=== PATIENT | female | born 1950 | race Caucasian/White ===

== ENCOUNTER → 2018-06-11 | Outpatient (CLI) | payer MEDICARE ==
[~2018-06-11] MED LIST: GADOBUTROL 7.5 MMOL/7.5 ML PFS ONE
== END | disposition home or self-care (01) ==
LOC: CFH 05-19 13:30
PROVIDERS: ATTEND Nurse Practitioner Family
DX: I69.393 Ataxia following cerebral infarction (principal); G31.9 Degenerative disease of nervous system, unspecified; D49.6 Neoplasm of unspecified behavior of brain
CPT/HCPCS: 70553; 82565; A9585

== ENCOUNTER 2018-08-30 14:07 | Inpatient (IN) | payer MEDICARE ==
[~2018-08-30] VITALS: Ht 175.3 cm; Wt 80.7 kg
[2018-08-30] MEDS ORDERED: SODIUM CHLORIDE FLUSH 10ML SYR IVF ONE (15:00)
[2018-08-30 15:35] LABS: MEAN CORPUSCULAR HEMOGLOBIN 31.9 pg (27.0-34.8); MEAN CORPUSCULAR HGB CONC 34.2 g/dL (32.4-35.8); MEAN CORPUSCULAR VOLUME 93.3 fL (80-100); MEAN PLATELET VOLUME 8.3 fL (7.4-10.4); PLATELET COUNT 221 x10^3/uL (130-400); RED BLOOD COUNT 4.71 x10^6/uL (3.82-5.3)
[2018-08-30 15:44] LABS: INTERNATIONAL NORMALIZED RATIO 1.25 (0.93-1.1); PROTHROMBIN TIME 13.1 Seconds (9.6-11.5)
[2018-08-30 15:48] LABS: ALANINE AMINOTRANSFERASE 43 U/L (12-78); ALBUMIN 2.8 g/dL (3.4-5.0); ANION GAP 12 mmol/L (5-15); CALCIUM 8.6 mg/dL (8.5-10.1); CHLORIDE 97 mmol/L (98-107); CREATININE 2.16 mg/dL (0.55-1.02)
[2018-08-30 15:50] LABS: ALKALINE PHOSPHATASE 130 U/L (45-117); BILIRUBIN,TOTAL 0.8 mg/dL (0.2-1.0); TOTAL PROTEIN 7.5 g/dL (6.4-8.2)
[2018-08-30 16:01] LABS: BASOPHILS # (AUTO) 0.01 x10^3/uL (0-0.1); BASOPHILS % (AUTO) 0 % (0-1); EOSINOPHILS % (AUTO) 0 % (1-7); LYMPHOCYTES # (AUTO) 1.34 x10^3/uL (1-3.4); LYMPHOCYTES % (AUTO) 8 % (22-44); MD SCAN; MONOCYTES # (AUTO) 0.96 x10^3/uL (0.2-0.8); MONOCYTES % (AUTO) 5 % (2-9); NEUTROPHILS # (AUTO) 15.37 x10^3/uL (1.8-6.8); NEUTROPHILS % (AUTO) 87 % (42-75)
[2018-08-30 16:26] LABS: CULTURE INDICATED? YES; MICROSCOPIC INDICATED
[2018-08-30] MEDS ORDERED: PANTOPRAZOLE 80 MG in SODIUM CHLORIDE 0.9% 100 ML IV SCH (17:00)
[2018-08-30] MEDS ORDERED: PANTOPRAZOLE 80 MG in SODIUM CHLORIDE 0.9% 50 ML IV ONE (17:00)
[2018-08-30] MEDS ORDERED: ONDANSETRON 2MG/ML, 2ML IVPush PRN (17:30)
[2018-08-30] MEDS ORDERED: hydrALAzine 20 MG/ML, 1ML IVPush PRN (17:30)
[2018-08-30] MEDS ORDERED: AMLO10TA6 PO (17:56)
[2018-08-30] MEDS ORDERED: LEVE500T8 PO (17:56)
[2018-08-30] MEDS ORDERED: TERB250T14 PEG (17:56)
[2018-08-30] MEDS ORDERED: SERT25TA3 PO (17:56)
[2018-08-30] MEDS ORDERED: ASPI-496 PO (17:56)
[2018-08-30] MEDS: SODIUM CHLORIDE 0.9% 1,000 ML IV SCH (19:25)
[2018-08-30 20:45] VITALS: BP 122/84
[2018-08-30] MEDS: CEFTRIAXONE PMX 1GM/50ML 50 ML IV SCH (20:58)
[2018-08-30] MEDS: PANTOPRAZOLE 80 MG in SODIUM CHLORIDE 0.9% 100 ML IV SCH (21:44)
[2018-08-31 02:54] VITALS: BP 100/71
[2018-08-31] MEDS: SODIUM CHLORIDE 0.9% 1,000 ML IV SCH ×2 (03:19→17:45)
[2018-08-31] MEDS: PANTOPRAZOLE 80 MG in SODIUM CHLORIDE 0.9% 100 ML IV SCH (03:19)
[2018-08-31 05:54] LABS: BASOPHILS # (AUTO) 0.06 x10^3/uL (0-0.1); BASOPHILS % (AUTO) 1 % (0-1); EOSINOPHILS # (AUTO) 0.08 x10^3/uL (0-0.4); EOSINOPHILS % (AUTO) 1 % (1-7); LYMPHOCYTES # (AUTO) 1.87 x10^3/uL (1-3.4); LYMPHOCYTES % (AUTO) 15 % (22-44); MD NO; MEAN CORPUSCULAR HEMOGLOBIN 31.7 pg (27.0-34.8); MEAN CORPUSCULAR HGB CONC 33.8 g/dL (32.4-35.8); MEAN CORPUSCULAR VOLUME 93.7 fL (80-100); MEAN PLATELET VOLUME 8.5 fL (7.4-10.4); MONOCYTES # (AUTO) 0.95 x10^3/uL (0.2-0.8); MONOCYTES % (AUTO) 8 % (2-9); NEUTROPHILS # (AUTO) 9.37 x10^3/uL (1.8-6.8); NEUTROPHILS % (AUTO) 76 % (42-75); PLATELET COUNT 182 x10^3/uL (130-400); RED CELL DISTRIBUTION WIDTH 13.3 % (9.6-15.2)
[2018-08-31 06:05] LABS: ANION GAP 8 mmol/L (5-15); CALCIUM 8.8 mg/dL (8.5-10.1); CHLORIDE 106 mmol/L (98-107)
[2018-08-31 07:27] VITALS: BP 100/72
[2018-08-31] MEDS ORDERED: PROPOFOL 10 MG/ML, 20ML ONE (10:40)
[2018-08-31 13:38] VITALS: BP 84/62
[2018-08-31] MEDS: AZITHROMYCIN 500 MG in SODIUM CHLORIDE 0.9% 250 ML IV SCH (15:43)
[2018-08-31] MEDS ORDERED: PANTOPRAZOLE GRAN. PKT 40 MG PO SCH (17:00)
[2018-08-31 19:12] VITALS: BP 100/69
[2018-08-31] MEDS: PANTOPRAZOLE 40 MG IV IVPush SCH (20:51)
[2018-08-31] MEDS: CEFTRIAXONE PMX 1GM/50ML 50 ML IV SCH (20:52)
[2018-09-01 01:30] VITALS: BP 104/72
[2018-09-01] MEDS: SODIUM CHLORIDE 0.9% 1,000 ML IV SCH (04:23)
[2018-09-01 04:51] LABS: BASOPHILS # (AUTO) 0.07 x10^3/uL (0-0.1); BASOPHILS % (AUTO) 1 % (0-1); EOSINOPHILS # (AUTO) 0.17 x10^3/uL (0-0.4); EOSINOPHILS % (AUTO) 2 % (1-7); LYMPHOCYTES # (AUTO) 1.74 x10^3/uL (1-3.4); LYMPHOCYTES % (AUTO) 24 % (22-44); MD NO; MEAN CORPUSCULAR HEMOGLOBIN 31.6 pg (27.0-34.8); MEAN CORPUSCULAR HGB CONC 33.6 g/dL (32.4-35.8); MEAN PLATELET VOLUME 8.4 fL (7.4-10.4); MONOCYTES # (AUTO) 0.61 x10^3/uL (0.2-0.8); MONOCYTES % (AUTO) 8 % (2-9); NEUTROPHILS # (AUTO) 4.78 x10^3/uL (1.8-6.8); NEUTROPHILS % (AUTO) 65 % (42-75); PLATELET COUNT 154 x10^3/uL (130-400); RED CELL DISTRIBUTION WIDTH 13.4 % (9.6-15.2)
[2018-09-01 05:01] LABS: CHLORIDE 114 mmol/L (98-107)
[2018-09-01 05:09] LABS: ALANINE AMINOTRANSFERASE 27 U/L (12-78); ALBUMIN 2.4 g/dL (3.4-5.0); ALKALINE PHOSPHATASE 102 U/L (45-117); ANION GAP 8 mmol/L (5-15); BILIRUBIN,TOTAL 0.3 mg/dL (0.2-1.0); CALCIUM 8.2 mg/dL (8.5-10.1); CREATININE 1.31 mg/dL (0.55-1.02); TOTAL PROTEIN 6.4 g/dL (6.4-8.2)
[2018-09-01 07:16] VITALS: BP 109/76
[2018-09-01] MEDS: PANTOPRAZOLE 40 MG IV IVPush SCH ×2 (08:52→20:32)
[2018-09-01] MEDS: ACETAMINOPHEN 650 MG/20.3 ML UDC GT PRN ×2 (11:58→17:25)
[2018-09-01] MEDS: TERBINAFINE 250MG TABLET PEG SCH (13:27)
[2018-09-01] MEDS: SERTRALINE 50MG TABLET PO SCH (13:27)
[2018-09-01] MEDS: LEVETIRACETAM 500 MG TABLET PO SCH (13:27)
[2018-09-01 13:44] VITALS: BP 120/82
[2018-09-01] MEDS: AZITHROMYCIN 500 MG in SODIUM CHLORIDE 0.9% 250 ML IV SCH (15:47)
[2018-09-01 19:22] VITALS: BP 148/87
[2018-09-01] MEDS: CEFTRIAXONE PMX 1GM/50ML 50 ML IV SCH (20:32)
[2018-09-02 01:08] VITALS: BP 145/87
[2018-09-02 04:37] LABS: BASOPHILS # (AUTO) 0.06 x10^3/uL (0-0.1); BASOPHILS % (AUTO) 1 % (0-1); EOSINOPHILS # (AUTO) 0.07 x10^3/uL (0-0.4); EOSINOPHILS % (AUTO) 1 % (1-7); LYMPHOCYTES # (AUTO) 1.04 x10^3/uL (1-3.4); LYMPHOCYTES % (AUTO) 12 % (22-44); MD NO; MEAN CORPUSCULAR HEMOGLOBIN 32.2 pg (27.0-34.8); MEAN CORPUSCULAR HGB CONC 34.2 g/dL (32.4-35.8); MEAN CORPUSCULAR VOLUME 94.3 fL (80-100); MEAN PLATELET VOLUME 8.3 fL (7.4-10.4); MONOCYTES # (AUTO) 0.71 x10^3/uL (0.2-0.8); MONOCYTES % (AUTO) 8 % (2-9); NEUTROPHILS # (AUTO) 7.19 x10^3/uL (1.8-6.8); NEUTROPHILS % (AUTO) 79 % (42-75); PLATELET COUNT 142 x10^3/uL (130-400); RED BLOOD COUNT 3.55 x10^6/uL (3.82-5.3); RED CELL DISTRIBUTION WIDTH 13.3 % (9.6-15.2)
[2018-09-02 04:47] LABS: ALBUMIN 2.5 g/dL (3.4-5.0); ANION GAP 7 mmol/L (5-15); CALCIUM 8.5 mg/dL (8.5-10.1); CHLORIDE 116 mmol/L (98-107); CREATININE 1.79 mg/dL (0.55-1.02)
[2018-09-02 07:02] VITALS: BP 145/92
[2018-09-02] MEDS: TERBINAFINE 250MG TABLET PEG SCH (09:26)
[2018-09-02] MEDS: SERTRALINE 50MG TABLET PO SCH (09:26)
[2018-09-02] MEDS: PANTOPRAZOLE 40 MG IV IVPush SCH (09:26)
[2018-09-02] MEDS: LEVETIRACETAM 500 MG TABLET PO SCH (09:26)
[2018-09-02 14:00] VITALS: BP 141/88
[2018-09-02] MEDS ORDERED: CEFD300C37 PO (15:01)
[2018-09-02] MEDS ORDERED: OMEP-110 PO (15:01)
[2018-09-02] MEDS: AZITHROMYCIN 500 MG in SODIUM CHLORIDE 0.9% 250 ML IV SCH (15:05)
== END 2018-09-02 18:40 | DRG 380 ==
LOC: ED 16:59 → SUATTDRO 17:07 → EDIP 17:21 → 3NW 17:45
PROVIDERS: ADMIT Hospitalist; ATTEND Hospitalist
PROC: 0T9B70Z Drainage of Bladder with Drainage Device, Via Natural or Artificial Opening (ICD-10-PCS; 2018-08-30)
PROC: 0DB38ZX Excision of Lower Esophagus, Via Natural or Artificial Opening Endoscopic, Diagnostic (ICD-10-PCS; principal; 2018-08-31 11:00)
DX: K22.11 Ulcer of esophagus with bleeding (principal); E43 Unspecified severe protein-calorie malnutrition; J18.9 Pneumonia, unspecified organism; N17.9 Acute kidney failure, unspecified; E87.0 Hyperosmolality and hypernatremia; E87.1 Hypo-osmolality and hyponatremia; N13.6 Pyonephrosis; J98.11 Atelectasis; K22.2 Esophageal obstruction; K21.9 Gastro-esophageal reflux disease without esophagitis; K44.9 Diaphragmatic hernia without obstruction or gangrene; N18.9 Chronic kidney disease, unspecified; N28.1 Cyst of kidney, acquired; Y83.3 Surgical operation with formation of external stoma as the cause of abnormal reaction of the patient, or of later complication, without mention of misadventure at the time of the procedure; Y82.8 Other medical devices associated with adverse incidents; D32.9 Benign neoplasm of meninges, unspecified; I12.9 Hypertensive chronic kidney disease with stage 1 through stage 4 chronic kidney disease, or unspecified chronic kidney disease; Z86.011 Personal history of benign neoplasm of the brain; Z86.73 Personal history of transient ischemic attack (TIA), and cerebral infarction without residual deficits; Z90.710 Acquired absence of both cervix and uterus; Z98.2 Presence of cerebrospinal fluid drainage device; Z68.26 Body mass index [BMI] 26.0-26.9, adult; Z86.19 Personal history of other infectious and parasitic diseases; Z87.440 Personal history of urinary (tract) infections; Z90.49 Acquired absence of other specified parts of digestive tract; Z88.6 Allergy status to analgesic agent
CPT/HCPCS: 36415; 74021; 74176; 80048; 80053; 81001; 82040; 83690; 83735; 84100; 84145; 85025; 85610; 87040; 87086; 88305; 93005; 99285; G0378; J0456; J0696; J2704; C9113; J7030; J7050

== ENCOUNTER → 2018-10-14 | Outpatient (CLI) | payer MEDICARE ==
[~2018-10-14] MED LIST changes: +AMLO-150 PO; +AMLO10TA6 PO; +ASPI-496 PO; +CEFD300C37 PO; +CHOL10003 PO; -GADOBUTROL 7.5 MMOL/7.5 ML PFS ONE; +LEVE500T8 PO; +OMEP-110 PO; +SERT25TA3 PO; +TERB250T14 PEG
== END | disposition home or self-care (01) ==
LOC: STAR 09:20
PROVIDERS: ATTEND Urology
DX: Z01.818 Encounter for other preprocedural examination (principal); N20.1 Calculus of ureter
CPT/HCPCS: 71045

== ENCOUNTER 2018-10-20 12:06 | Day surgery (SDC) | payer MEDICARE ==
[~2018-10-20] VITALS: Ht 172.7 cm; Wt 79.3 kg
[~2018-10-20 12:06] MED LIST changes: -AMLO10TA6 PO; +AMLO10TA8 PO
[2018-10-20] MEDS ORDERED: LACTATED RINGERS 1,000 ML IV SCH (12:26)
[2018-10-20] MEDS ORDERED: ACETAMINOPHEN 500 MG TABLET PO ONE (12:30)
[2018-10-20] MEDS ORDERED: ONDANSETRON ODT 8 MG PO ONE (12:30)
[2018-10-20 12:45] VITALS: BP 118/82
[2018-10-20] MEDS ORDERED: ACETAMINOPHEN 325 MG/10.15 ML UDC PO STA (12:55)
[2018-10-20] MEDS ORDERED: MIDAZOLAM 1 MG/ML, 2ML ONE (13:34)
[2018-10-20] MEDS ORDERED: FENTANYL PF 100 MCG/2ML ONE ×2 (13:34→14:46)
[2018-10-20] MEDS ORDERED: LIDOCAINE 2% 100MG/5ML SYRINGE ONE (13:38)
[2018-10-20] MEDS ORDERED: SUCCINYLCHOLINE 20 MG/ML, 10ML ONE (13:38)
[2018-10-20] MEDS ORDERED: GLYCOPYRROLATE 0.2MG/1ML, 5ML ONE (13:38)
[2018-10-20] MEDS ORDERED: PROPOFOL 10 MG/ML, 20ML ONE (13:38)
[2018-10-20] MEDS ORDERED: CEFOTETAN 2 GM ONE (13:38)
[2018-10-20] MEDS ORDERED: DEXAMETHASONE 4 MG/ML, 1ML ONE (13:38)
[2018-10-20] MEDS ORDERED: HYDROmorphone 1 MG/ML, 1ML IV PRN (16:00)
[2018-10-20] MEDS ORDERED: ONDANSETRON 2MG/ML, 2ML IVPush PRN (16:00)
[2018-10-20] MEDS ORDERED: MIDAZOLAM 1 MG/ML, 2ML IV PRN (16:00)
[2018-10-20] MEDS ORDERED: OXYcodone 5 MG/5 ML ORAL.SOL UDC PO PRN (16:00)
[2018-10-20] MEDS ORDERED: LABETALOL 5MG/ML, 20ML IV PRN (16:00)
[2018-10-20] MEDS ORDERED: MEPERIDINE/PF 25MG/0.5ML IVPush PRN (16:00)
[2018-10-20] MEDS ORDERED: FENTANYL PF 100 MCG/2ML IV PRN (16:00)
== END 2018-10-20 22:56 | disposition home or self-care (01) ==
LOC: OUT 12:06 → 4NOR 17:11 → OUT 22:56
PROVIDERS: ATTEND Urology
DX: N20.2 Calculus of kidney with calculus of ureter (principal); Z90.49 Acquired absence of other specified parts of digestive tract; Z90.722 Acquired absence of ovaries, bilateral; Z98.890 Other specified postprocedural states; Z86.73 Personal history of transient ischemic attack (TIA), and cerebral infarction without residual deficits; Z88.8 Allergy status to other drugs, medicaments and biological substances
CPT/HCPCS: 52356; 74018; C1758; C1769; C2617; J0330; J1100; J2250; J2704; J3010; J3490; J7120; Q0162; 76001; G0378

== ENCOUNTER → 2018-12-18 | Outpatient (CLI) | payer MEDICARE | END | disposition home or self-care (01) | LOC: STAR 10:40 | PROVIDERS: ATTEND Urology | DX: Z01.818 Encounter for other preprocedural examination (principal); N20.0 Calculus of kidney; I44.4 Left anterior fascicular block | CPT/HCPCS: 93005 ==

== ENCOUNTER → 2018-12-22 | Outpatient (CLI) | payer MEDICARE ==
[~2018-12-22] MED LIST changes: +NITR100C56 PO; +TAMS-11 PO
== END | disposition home or self-care (01) ==
LOC: CFH 09:36
PROVIDERS: ATTEND Urology
DX: N20.2 Calculus of kidney with calculus of ureter (principal); I87.8 Other specified disorders of veins; Z96.0 Presence of urogenital implants
CPT/HCPCS: 74018

== ENCOUNTER 2018-12-23 12:19 | Observation (INO) | payer MEDICARE ==
[~2018-12-23] VITALS: Ht 175.3 cm; Wt 78.3 kg
[~2018-12-23 12:19] MED LIST changes: +CEFAZOLIN 1,000 MG ONE; +DEXAMETHASONE 4 MG/ML, 1ML ONE; +GLYCOPYRROLATE 0.2MG/1ML, 5ML ONE; +NEOSTIGMINE 1 MG/ML, 10ML ONE; -NITR100C56 PO; +ONDANSETRON 2MG/ML, 2ML ONE; +PHENYLEPHRINE 10 MG/ML ONE; +PROPOFOL 10 MG/ML, 20ML ONE; +ROCURONIUM 10MG/ML,5ML ONE; -TAMS-11 PO
[2018-12-23] MEDS ORDERED: LACTATED RINGERS 1,000 ML IV SCH (12:58)
[2018-12-23 13:35] VITALS: BP 96/69
[2018-12-23] MEDS ORDERED: MIDAZOLAM 1 MG/ML, 2ML ONE (15:53)
[2018-12-23] MEDS ORDERED: FENTANYL PF 250 MCG/5ML ONE (15:56)
[2018-12-23] MEDS ORDERED: MEPERIDINE/PF 25MG/0.5ML IVPush PRN (17:30)
[2018-12-23] MEDS ORDERED: FENTANYL PF 100 MCG/2ML IV PRN (17:30)
[2018-12-23] MEDS ORDERED: ACETAMINOPHEN 325 MG TABLET PO PRN (17:30)
[2018-12-23] MEDS ORDERED: PROMETHAZINE 25 MG/ML, 1ML IV PRN (17:30)
[2018-12-23] MEDS ORDERED: HYDROmorphone 2 MG/ML, 1ML IVPush PRN (17:30)
[2018-12-23] MEDS ORDERED: OXYcodone 5 MG/5 ML ORAL.SOL UDC PO PRN (17:30)
[2018-12-23] MEDS ORDERED: hydrALAzine 20 MG/ML, 1ML IV PRN (17:30)
[2018-12-23] MEDS ORDERED: HALOPERIDOL 5 MG/ML IV PRN (17:30)
[2018-12-23 18:20] VITALS: BP 102/67
[2018-12-24 00:08] VITALS: BP 102/67
[2018-12-24 05:36] VITALS: BP 116/74
[2018-12-24 09:20] VITALS: BP 112/75
[2018-12-24 13:21] LABS: CULTURE INDICATED? YES; MICROSCOPIC INDICATED
[2018-12-24 15:45] VITALS: BP_SYST 118; BP_SYST 119; BP_DIAS 69; BP_DIAS 75
[2018-12-24] MEDS ORDERED: TAMS-11 PO (17:42)
[2018-12-24] MEDS ORDERED: NITR100C56 PO (18:05)
[2018-12-24 18:27] VITALS: BP 118/83
[2018-12-24] MEDS ORDERED: NITROFURANTOIN (MACROBID) 100 MG CAPSULE PO SCH (21:00)
== END 2018-12-24 18:42 | disposition home or self-care (01) ==
LOC: OUT 12:19 → 4NOR 18:11 → OUT 23:22 → 4NOR 23:22
PROVIDERS: ADMIT Urology; ATTEND Urology
DX: N20.0 Calculus of kidney (principal); N21.0 Calculus in bladder; Z86.011 Personal history of benign neoplasm of the brain; Z86.73 Personal history of transient ischemic attack (TIA), and cerebral infarction without residual deficits; Z87.442 Personal history of urinary calculi
CPT/HCPCS: 51050; 74018; 76000; 81001; 87077; 87086; 87186; C1758; C1769; G0378; J0690; J1100; J2250; J2370; J2405; J2704; J2710; J3010; J3490; J7120

== ENCOUNTER → 2019-02-09 | Outpatient (CLI) | payer MEDICARE ==
[~2019-02-09] MED LIST changes: -CEFAZOLIN 1,000 MG ONE; -DEXAMETHASONE 4 MG/ML, 1ML ONE; -GLYCOPYRROLATE 0.2MG/1ML, 5ML ONE; -NEOSTIGMINE 1 MG/ML, 10ML ONE; +NITR100C56 PO; -ONDANSETRON 2MG/ML, 2ML ONE; -PHENYLEPHRINE 10 MG/ML ONE; -PROPOFOL 10 MG/ML, 20ML ONE; -ROCURONIUM 10MG/ML,5ML ONE; +TAMS-11 PO
== END | disposition home or self-care (01) ==
LOC: CFH 09:51
PROVIDERS: ATTEND Urology
DX: N28.1 Cyst of kidney, acquired (principal)
CPT/HCPCS: 76770

== ENCOUNTER 2020-04-14 10:39 | Inpatient (IN) | payer MEDICARE ==
[~2020-04-14] VITALS: Ht 172.7 cm; Wt 84.1 kg
[~2020-04-14 10:39] MED LIST changes: +AMOX1TAB64 PO; +CALCIUM PO; +CIPR250T27 PO; +ESOM20CA PO; +FENO54TA17 PO; +MIRA50TA PO; +[UNRECOGNIZED DRUG - OTHER] PO
[2020-04-14] MEDS ORDERED: SODIUM CHLORIDE FLUSH 10ML SYR IVF ONE (11:00)
[2020-04-14] MEDS ORDERED: SODIUM CHLORIDE 0.9% 1,000ML IVBOLUS ONE (11:00)
[2020-04-14 11:55] LABS: BASOPHILS # (AUTO) 0.04 x10^3/uL (0-0.1); BASOPHILS % (AUTO) 1 % (0-1); EOSINOPHILS # (AUTO) 0.21 x10^3/uL (0-0.4); EOSINOPHILS % (AUTO) 2 % (1-7); LYMPHOCYTES # (AUTO) 1.46 x10^3/uL (1-3.4); LYMPHOCYTES % (AUTO) 17 % (22-44); MD NO; MEAN CORPUSCULAR HEMOGLOBIN 30.3 pg (27.0-34.8); MEAN CORPUSCULAR HGB CONC 32.4 g/dL (32.4-35.8); MEAN CORPUSCULAR VOLUME 93.8 fL (80-100); MEAN PLATELET VOLUME 8.9 fL (7.4-10.4); MONOCYTES # (AUTO) 0.58 x10^3/uL (0.2-0.8); MONOCYTES % (AUTO) 7 % (2-9); NEUTROPHILS # (AUTO) 6.57 x10^3/uL (1.8-6.8); NEUTROPHILS % (AUTO) 74 % (42-75); PLATELET COUNT 201 x10^3/uL (130-400); RED BLOOD COUNT 4.96 x10^6/uL (3.82-5.3); RED CELL DISTRIBUTION WIDTH 13.6 % (9.6-15.2)
[2020-04-14 12:04] LABS: ALBUMIN 3.3 g/dL (3.4-5.0); ANION GAP 7 mmol/L (5-15); CALCIUM 9.7 mg/dL (8.5-10.1); CHLORIDE 105 mmol/L (98-107)
[2020-04-14 12:09] LABS: ALANINE AMINOTRANSFERASE 21 U/L (12-78); ALKALINE PHOSPHATASE 107 U/L (45-117); BILIRUBIN,TOTAL 0.5 mg/dL (0.2-1.0); CREATININE 1.48 mg/dL (0.55-1.02); TOTAL PROTEIN 8.9 g/dL (6.4-8.2)
--- NOTE | 2020-04-14 12:17 | NUR ---
Pt resting, no complaints, no pain. Family at bedside.
[2020-04-14 12:32] LABS: MICROSCOPIC AUTO
[2020-04-14] MEDS ORDERED: ALBUTEROL SULFATE 2.5 MG/3 ML ONE (12:41)
[2020-04-14] MEDS ORDERED: CEFEPIME 1 GM in DEXTROSE 5% 50 ML IV ONE (13:00)
--- NOTE | 2020-04-14 13:17 | NUR ---
Pt appears comfortable, spouse at bedside. Pharm req sent for Cefepime.
--- NOTE | 2020-04-14 13:30 | NUR ---
Pt report provided to ATIF Cardenas. Hospitalist at bedside.
[2020-04-14] MEDS ORDERED: ONDANSETRON ODT 4 MG PO PRN (14:00)
[2020-04-14] MEDS ORDERED: ACETAMINOPHEN 325 MG TABLET PO PRN (14:00)
[2020-04-14] MEDS ORDERED: ONDANSETRON 2MG/ML, 2ML IVPush PRN (14:00)
--- NOTE | 2020-04-14 14:37 | NUR ---
Pt resting, family at bedside, ABX infusing.
--- NOTE | 2020-04-14 15:03 | NUR ---
Pt toileted. Linens changed.
--- NOTE | 2020-04-14 15:11 | NUR ---
Handoff report provided to Nedra SRIVASTAVA
[2020-04-14 16:23] VITALS: BP 131/85
[2020-04-14 17:24] VITALS: BP 131/85
[2020-04-14] MEDS: CEFEPIME 1 GM in DEXTROSE 5% 50 ML IV SCH (17:31)
[2020-04-14] MEDS: LACTATED RINGERS 1,000 ML IV SCH (17:35)
[2020-04-14 19:13] VITALS: BP 151/87
[2020-04-15 00:45] VITALS: BP 136/81
[2020-04-15] MEDS: LACTATED RINGERS 1,000 ML IV SCH (04:08)
[2020-04-15] MEDS: PANTOPRAZOLE GRAN. PKT 40 MG PEG SCH (05:19)
[2020-04-15] MEDS: CEFEPIME 1 GM in DEXTROSE 5% 50 ML IV SCH ×2 (05:34→17:12)
[2020-04-15 06:02] LABS: BASOPHILS # (AUTO) 0.04 x10^3/uL (0-0.1); BASOPHILS % (AUTO) 1 % (0-1); EOSINOPHILS % (AUTO) 4 % (1-7); LYMPHOCYTES # (AUTO) 2.22 x10^3/uL (1-3.4); LYMPHOCYTES % (AUTO) 28 % (22-44); MD NO; MEAN CORPUSCULAR HEMOGLOBIN 31.1 pg (27.0-34.8); MEAN CORPUSCULAR HGB CONC 33.2 g/dL (32.4-35.8); MEAN CORPUSCULAR VOLUME 93.7 fL (80-100); MEAN PLATELET VOLUME 9.4 fL (7.4-10.4); MONOCYTES # (AUTO) 0.51 x10^3/uL (0.2-0.8); MONOCYTES % (AUTO) 6 % (2-9); NEUTROPHILS # (AUTO) 4.98 x10^3/uL (1.8-6.8); NEUTROPHILS % (AUTO) 62 % (42-75); PLATELET COUNT 166 x10^3/uL (130-400); RED BLOOD COUNT 4.33 x10^6/uL (3.82-5.3); RED CELL DISTRIBUTION WIDTH 13.1 % (9.6-15.2)
[2020-04-15 06:17] LABS: CHLORIDE 108 mmol/L (98-107)
[2020-04-15 06:24] LABS: ALANINE AMINOTRANSFERASE 17 U/L (12-78); ALBUMIN 2.8 g/dL (3.4-5.0); ALKALINE PHOSPHATASE 90 U/L (45-117); ANION GAP 7 mmol/L (5-15); BILIRUBIN,TOTAL 0.7 mg/dL (0.2-1.0); CALCIUM 8.9 mg/dL (8.5-10.1); CREATININE 1.01 mg/dL (0.55-1.02); TOTAL PROTEIN 7.5 g/dL (6.4-8.2)
[2020-04-15 06:32] VITALS: BP 146/86
[2020-04-15] MEDS: FENOFIBRATE 54 MG TABLET PEG SCH (11:50)
[2020-04-15] MEDS: AMLODIPINE 5 MG TABLET PEG SCH (11:52)
[2020-04-15] MEDS: SERTRALINE 50MG TABLET PEG SCH (11:53)
[2020-04-15] MEDS: LEVETIRACETAM 100 MG/ML ORAL SOL PEG SCH (11:57)
[2020-04-15] MEDS: ERYTHROMYCIN OPHTH 0.5%, 1GM RIGHTEYE SCH (11:57)
[2020-04-15] MEDS ORDERED: OMNIPAQUE 350 MG/ML, 100ML BOTTLE ONE (15:08)
[2020-04-15 15:24] VITALS: BP 129/78
--- NOTE | 2020-04-15 18:11 | NUR ---
FREE WATER FLUSH RECOMMENDATION: if no IVF, recommend 75 ml free water flush q 4 hours Addendum: 04/15/20 at [address] Amended: Links added.
[2020-04-15 18:46] VITALS: BP 123/80
[2020-04-15] MEDS: ENOXAPARIN 40 MG/0.4 ML SQ SCH (20:37)
[2020-04-16 00:09] VITALS: BP 133/82
[2020-04-16] MEDS: CEFEPIME 1 GM in DEXTROSE 5% 50 ML IV SCH ×2 (05:16→17:37)
[2020-04-16] MEDS: PANTOPRAZOLE GRAN. PKT 40 MG PEG SCH (05:16)
[2020-04-16 06:26] VITALS: BP 123/79
[2020-04-16] MEDS: SERTRALINE 50MG TABLET PEG SCH (10:00)
[2020-04-16] MEDS: FENOFIBRATE 54 MG TABLET PEG SCH (10:00)
[2020-04-16] MEDS: AMLODIPINE 5 MG TABLET PEG SCH (10:00)
[2020-04-16] MEDS: LEVETIRACETAM 100 MG/ML ORAL SOL PEG SCH (10:00)
[2020-04-16] MEDS: ERYTHROMYCIN OPHTH 0.5%, 1GM RIGHTEYE SCH (10:01)
[2020-04-16 14:33] VITALS: BP 112/72
[2020-04-16 18:46] VITALS: BP 103/71
[2020-04-16] MEDS: ENOXAPARIN 40 MG/0.4 ML SQ SCH (20:34)
[2020-04-17 00:18] VITALS: BP 124/82
[2020-04-17] MEDS: PANTOPRAZOLE GRAN. PKT 40 MG PEG SCH (05:50)
[2020-04-17] MEDS: CEFEPIME 1 GM in DEXTROSE 5% 50 ML IV SCH ×2 (05:50→18:02)
[2020-04-17 06:40] VITALS: BP 118/74
[2020-04-17] MEDS: AMLODIPINE 5 MG TABLET PEG SCH (09:30)
[2020-04-17] MEDS: SERTRALINE 50MG TABLET PEG SCH (09:30)
[2020-04-17] MEDS: FENOFIBRATE 54 MG TABLET PEG SCH (09:30)
[2020-04-17] MEDS: ERYTHROMYCIN OPHTH 0.5%, 1GM RIGHTEYE SCH (09:31)
[2020-04-17] MEDS: LEVETIRACETAM 100 MG/ML ORAL SOL PEG SCH (09:32)
[2020-04-17] MEDS ORDERED: CEFE1FRO IVPB (10:07)
[2020-04-17] MEDS ORDERED: ONDA4TAB13 PO (10:08)
[2020-04-17] MEDS ORDERED: ERYT1OIN5 RIGHTEYE (10:08)
[2020-04-17 13:36] VITALS: BP 109/75
[2020-04-17 18:35] VITALS: BP 112/76
[2020-04-17] MEDS: ENOXAPARIN 40 MG/0.4 ML SQ SCH (21:32)
[2020-04-18 00:02] VITALS: BP 106/56
[2020-04-18] MEDS: PANTOPRAZOLE GRAN. PKT 40 MG PEG SCH (05:36)
[2020-04-18] MEDS: CEFEPIME 1 GM in DEXTROSE 5% 50 ML IV SCH (05:36)
[2020-04-18 06:25] VITALS: BP 121/80
[2020-04-18] MEDS: SERTRALINE 50MG TABLET PEG SCH (08:19)
[2020-04-18] MEDS: FENOFIBRATE 54 MG TABLET PEG SCH (08:19)
[2020-04-18] MEDS: AMLODIPINE 5 MG TABLET PEG SCH (08:19)
[2020-04-18] MEDS: ERYTHROMYCIN OPHTH 0.5%, 1GM RIGHTEYE SCH (08:30)
[2020-04-18] MEDS: LEVETIRACETAM 100 MG/ML ORAL SOL PEG SCH (08:30)
[2020-04-18 14:30] VITALS: BP 110/72
[2020-04-18] MEDS: CEFTRIAXONE PMX 1GM/50ML 50 ML IV SCH (15:45)
[2020-04-18 20:16] VITALS: BP 115/74
[2020-04-18] MEDS: ENOXAPARIN 40 MG/0.4 ML SQ SCH (21:11)
[2020-04-19 00:35] VITALS: BP 119/78
[2020-04-19] MEDS: PANTOPRAZOLE GRAN. PKT 40 MG PEG SCH (05:21)
[2020-04-19 05:36] LABS: BASOPHILS # (AUTO) 0.07 x10^3/uL (0-0.1); BASOPHILS % (AUTO) 1 % (0-1); EOSINOPHILS # (AUTO) 0.42 x10^3/uL (0-0.4); EOSINOPHILS % (AUTO) 5 % (1-7); LYMPHOCYTES # (AUTO) 2.11 x10^3/uL (1-3.4); LYMPHOCYTES % (AUTO) 25 % (22-44); MD NO; MEAN CORPUSCULAR HEMOGLOBIN 30.7 pg (27.0-34.8); MEAN PLATELET VOLUME 8.5 fL (7.4-10.4); MONOCYTES # (AUTO) 0.59 x10^3/uL (0.2-0.8); MONOCYTES % (AUTO) 7 % (2-9); NEUTROPHILS # (AUTO) 5.35 x10^3/uL (1.8-6.8); NEUTROPHILS % (AUTO) 63 % (42-75); PLATELET COUNT 210 x10^3/uL (130-400); RED BLOOD COUNT 4.42 x10^6/uL (3.82-5.3); RED CELL DISTRIBUTION WIDTH 13.1 % (9.6-15.2)
[2020-04-19 05:57] LABS: ANION GAP 7 mmol/L (5-15); CALCIUM 9.5 mg/dL (8.5-10.1); CHLORIDE 107 mmol/L (98-107); CREATININE 1.16 mg/dL (0.55-1.02)
[2020-04-19 06:55] VITALS: BP 105/71
[2020-04-19] MEDS: LEVETIRACETAM 100 MG/ML ORAL SOL PEG SCH (09:16)
[2020-04-19] MEDS: AMLODIPINE 5 MG TABLET PEG SCH (09:17)
[2020-04-19] MEDS: SERTRALINE 50MG TABLET PEG SCH (09:17)
[2020-04-19] MEDS: ERYTHROMYCIN OPHTH 0.5%, 1GM RIGHTEYE SCH (09:17)
[2020-04-19] MEDS: FENOFIBRATE 54 MG TABLET PEG SCH (09:17)
[2020-04-19] MEDS: CEFTRIAXONE PMX 1GM/50ML 50 ML IV SCH (15:02)
[2020-04-19 16:37] VITALS: BP 112/74
[2020-04-19 18:50] VITALS: BP 116/81
[2020-04-19] MEDS: ENOXAPARIN 40 MG/0.4 ML SQ SCH (21:08)
[2020-04-20 01:52] VITALS: BP 116/81
[2020-04-20] MEDS: PANTOPRAZOLE GRAN. PKT 40 MG PEG SCH (05:25)
[2020-04-20 08:28] VITALS: BP 107/75
[2020-04-20] MEDS: LEVETIRACETAM 100 MG/ML ORAL SOL PEG SCH (09:07)
[2020-04-20] MEDS: AMLODIPINE 5 MG TABLET PEG SCH (09:07)
[2020-04-20] MEDS: FENOFIBRATE 54 MG TABLET PEG SCH (09:07)
[2020-04-20] MEDS: SERTRALINE 50MG TABLET PEG SCH (09:07)
[2020-04-20] MEDS: ERYTHROMYCIN OPHTH 0.5%, 1GM RIGHTEYE SCH (09:08)
[2020-04-20] MEDS ORDERED: CEFT1FRO2 IVPB (10:17)
[2020-04-20] MEDS: CEFTRIAXONE PMX 1GM/50ML 50 ML IV SCH (14:57)
[2020-04-20 15:01] VITALS: BP 108/72
== END 2020-04-20 16:45 | DRG 689 ==
LOC: ED 12:46 → EDIP 13:49 → 3N 15:32
PROVIDERS: ADMIT Family Medicine; ATTEND Hospitalist
DX: N39.0 Urinary tract infection, site not specified (principal); N17.0 Acute kidney failure with tubular necrosis; I12.9 Hypertensive chronic kidney disease with stage 1 through stage 4 chronic kidney disease, or unspecified chronic kidney disease; N18.3 Chronic kidney disease, stage 3 (moderate); R26.9 Unspecified abnormalities of gait and mobility; R13.10 Dysphagia, unspecified; Z66 Do not resuscitate; B96.4 Proteus (mirabilis) (morganii) as the cause of diseases classified elsewhere; F32.9 Major depressive disorder, single episode, unspecified; Z86.73 Personal history of transient ischemic attack (TIA), and cerebral infarction without residual deficits; Z90.710 Acquired absence of both cervix and uterus; Z90.49 Acquired absence of other specified parts of digestive tract; Z79.899 Other long term (current) drug therapy; Z88.6 Allergy status to analgesic agent; Z82.49 Family history of ischemic heart disease and other diseases of the circulatory system; Z81.8 Family history of other mental and behavioral disorders; Z80.8 Family history of malignant neoplasm of other organs or systems; Z83.3 Family history of diabetes mellitus; Z86.011 Personal history of benign neoplasm of the brain; Z86.19 Personal history of other infectious and parasitic diseases; Z87.442 Personal history of urinary calculi; Z93.1 Gastrostomy status; R62.7 Adult failure to thrive
CPT/HCPCS: 36415; 71045; 72194; 76770; 80048; 80053; 81001; 83605; 85025; 87040; 87077; 87086; 87186; 93005; G0378; J0692; J0696; J1650; Q9967; J7030; J7120

== ENCOUNTER 2020-07-24 10:29 | Emergency (ER) | payer MEDICARE ==
[~2020-07-24] VITALS: Ht 172.7 cm; Wt 77.0 kg
[~2020-07-24 10:29] MED LIST changes: -GADOTERATE 10 MMOL/20 ML VIAL ONE
[2020-07-24 11:17] LABS: BASOPHILS % (AUTO) 1 % (0-1); EOSINOPHILS % (AUTO) 3 % (1-7); LYMPHOCYTES % (AUTO) 19 % (22-44); MEAN CORPUSCULAR HEMOGLOBIN 30.2 pg (27.0-34.8); MEAN CORPUSCULAR HGB CONC 32.9 g/dL (32.4-35.8); MEAN PLATELET VOLUME 8.5 fL (7.4-10.4); MONOCYTES % (AUTO) 7 % (2-9); NEUTROPHILS % (AUTO) 70 % (42-75); PLATELET COUNT 208 x10^3/uL (130-400); RED BLOOD COUNT 4.64 x10^6/uL (3.82-5.3); RED CELL DISTRIBUTION WIDTH 13.2 % (9.6-15.2)
[2020-07-24 11:24] LABS: ALBUMIN 3.1 g/dL (3.4-5.0); ANION GAP 3 mmol/L (5-15); CALCIUM 9.5 mg/dL (8.5-10.1); CHLORIDE 104 mmol/L (98-107); CREATININE 1.26 mg/dL (0.55-1.02)
[2020-07-24 11:26] LABS: MD NO
[2020-07-24 14:54] VITALS: BP 143/71
== END 2020-07-24 14:56 | disposition home or self-care (01) ==
LOC: ED 11:27
DX: R41.82 Altered mental status, unspecified (principal); R00.1 Bradycardia, unspecified; I10 Essential (primary) hypertension; Z86.73 Personal history of transient ischemic attack (TIA), and cerebral infarction without residual deficits
CPT/HCPCS: 36415; 80048; 82040; 85025; 93005; 99284

== ENCOUNTER → 2020-07-24 | Outpatient (CLI) | payer MEDICARE ==
[~2020-07-24] MED LIST changes: +CEFE1FRO IVPB; +CEFT1FRO2 IVPB; +ERYT1OIN5 RIGHTEYE; +GADOTERATE 10 MMOL/20 ML VIAL ONE; +ONDA4TAB13 PO
== END | disposition home or self-care (01) ==
LOC: RAD 08:03
PROVIDERS: ATTEND Neurological Surgery
DX: D33.2 Benign neoplasm of brain, unspecified (principal); I25.2 Old myocardial infarction; J34.89 Other specified disorders of nose and nasal sinuses
CPT/HCPCS: 70553; A9575